=== PATIENT | female | born 1950 | race Caucasian/White ===

== ENCOUNTER 2016-12-30 07:32 | Inpatient (IN) | payer OTHER, MEDICARE ==
[2016-12-30] VITALS (9 sets, daily range): BP systolic 93–137; BP diastolic 44–75
[~2016-12-30] VITALS: Ht 152.4 cm; Wt 88.0 kg
--- NOTE | ~2016-12-30 | HC ---
[facility] [place] [address] CONSULTATION Name: JUSTYN STOUT Room #: 237-P ADM IN M.R.#: [id number] Admission: 12/30/16 Attend Phys: Rashi Jensen MD Discharge: Date of : 48 Report #: [id number] THIS REPORT FOR: //name// CC: Desiree Jensen DATE OF SERVICE: 12/30/2016 CHIEF COMPLAINT: I have been asked to evaluate this 66-year-old lady who presented to the emergency department with chief complaint of abdominal pain. HISTORY OF PRESENT ILLNESS: The patient begin with onset of abdominal pain on Wednesday afternoon. It was in her lower abdomen that has been progressive over the last 2-3 days. She sought attention in the emergency department, had examination. CT scan demonstrates free air, possibly early developing abscess of the distal small bowel or the colon in the lower abdomen. She has had a previous colonoscopy, but does not recall when. She had a lab band placed a number of years ago, approximately 8-9 and she had an 80-pound weight loss. She has noticed no recent change in her gastrointestinal function prior to Wednesday. PAST MEDICAL HISTORY: Medical illnesses: Hypertension, greater than 10 years; arthritis and obesity. PAST SURGICAL HISTORY: Surgical illnesses: Lab band placement approximately 8 years ago and previous hysterectomy. MEDICATIONS: Noted in the record. ALLERGIES: AMOXICILLIN. 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 Denies cigarette smoking or alcohol ingestion. REVIEW OF SYSTEMS: A 10-point review of systems essentially noncontributory, except for recent change in gastrointestinal function. PHYSICAL EXAMINATION: GENERAL: Well-developed, well-nourished, overweight lady. VITAL SIGNS: Within normal limits. Afebrile. HEENT: Pupils equal, round and react to light. Extraocular movements within normal limits. NECK: Supple. No adenopathy. LUNGS: Clear at the bases bilaterally. CARDIOVASCULAR: Regular rate and rhythm. ABDOMEN: Obese. Lap band port in the left upper quadrant, left to midline. Lower midline scar, tenderness with guarding and rebound in the lower abdomen. [facility] [address] [place] [address] CONSULTATION Name: JUSTYN STOUT Room #: 237-P ADM IN M.R.#: [id number] Admission: 12/30/16 Attend Phys: Rashi Jensen MD Discharge: Date of : 48 Report #: [id number] RECTAL EXAMINATION: Not performed. NEUROLOGIC: The patient is alert and oriented times 3, with bilateral motor symmetry. DIAGNOSTIC IMPRESSION: Perforated viscus. The patient has an acute abdomen. PLAN: IV antibiotics, exploratory laparotomy. The patient will need possible small-bowel resection or a colon resection for the perforation with a colostomy if this involves the sigmoid colon. The procedure, benefits and risks have been discussed with the patient. She is in agreement to proceed. <ELECTRONICALLY SIGNED> By: Johnson Hightower MD, FACS 12/30/16 1519 1108 1130 Johnson Hightower MD, FACS /nt
--- NOTE | ~2016-12-30 | HC ---
[facility] [place] [address] CONSULTATION Name: JUSTYN STOUT Room #: 237-P ADM IN M.R.#: [id number] Admission: 12/30/16 Attend Phys: Rashi Jensen MD Discharge: Date of : 48 Report #: [id number] THIS REPORT FOR: //name// CC: Desiree Jensen REASON FOR CONSULTATION: I was asked to evaluate concerning perforated sigmoid diverticular disease with peritonitis. HISTORY OF PRESENT ILLNESS: The patient was a 66-year-old, presented to the emergency room with generalized weakness, fatigue. Onset occurred approximately 5 days prior to her presentation. She did report a mildly productive cough. Decreased appetite was associated with this. She did have some abdominal pain and CT scan of the abdomen showed evidence of pneumoperitoneum consistent with bowel perforation. She was taken to the operating room where she is found to have sigmoid diverticulitis with perforation. She had a sigmoid resection with a colostomy and a partial . The patient is now in the Intensive Care Unit, hemodynamically stable. She is now off the ventilator. She has an NG tube in place and does respond. Right IJ catheter in place, she has indwelling Arthur catheter with reasonable urine output. ALLERGIES: None known. MEDICATIONS: As noted on her MAR, which were reviewed. PAST MEDICAL HISTORY: Hyperlipidemia, hypothyroidism, diabetes, arthritis, hypertension, cholecystectomy, right shoulder repair, right leg fracture repair. SOCIAL HISTORY: Nonsmoker, no significant alcohol intake. PHYSICAL EXAMINATION: VITAL SIGNS: The patient is afebrile, hemodynamically stable. Blood pressure 110/69, heart rate 93. GENERAL: Right IJ catheter Unremarkable. CHEST: Clear. HEART: Regular. ABDOMEN: Diffusely tender. She had a Prevena on her incision. FRED drainage with serous output. Her colostomy was unremarkable. EXTREMITIES: Unremarkable. LABORATORY STUDIES: Sodium 131, potassium 4.5, bicarbonate 22, creatinine 1.9. I do not have a baseline creatinine on her. Liver function test normal, calcium 10.4. Liver function test normal. Lactate 1.7. Hemoglobin 12.5, white count 21.4, platelet count 334,000, 4% bands. Urinalysis, many WBCs, many bacteria. Cultures of blood, urine and peritoneal fluid are pending. CT scan of the abdomen and pelvis noted sigmoid colon thickening and changes of diverticulitis. Large amount of scattered pneumatosis along the perihepatic region, 4.6 x 4.5 [place] [address] CONSULTATION Name: JUSTYN STOUT Room #: 237-P ADM IN [facility].#: [id number] Admission: 12/30/16 Attend Phys: Rashi Jensen MD Discharge: Date of : 48 Report #: [id number] fluid collection with an air fluid level, indeterminate. There were several other small fluid collections present as well. IMPRESSION: A 66-year-old with perforated sigmoid following diverticulitis. Associated peritonitis. She is now stable post-laparotomy and sigmoid resection. Recommend continuing broad antibiotic coverage and await cultures. I suspect the urinary tract infection is related as well. <ELECTRONICALLY SIGNED> By: Leon Ho MD 12/31/16 0920 1751 0901 Leon Ho MD /nt
--- NOTE | ~2016-12-30 | EKG ---
[address] [address] ELECTROCARDIOGRAM REPORT Name: ARGELIAJUSTYN Room #: 406-P ADM IN M.R.#: [id number] Admission: 12/30/16 Attend Phys: Rashi Jensen MD Discharge: Date of : 48 Report #: [id number] THIS REPORT FOR: //name// [facility] Test Date: 2016-12-30 Test Time: 11:03:03 Pat Name: JUSTYN STOUT Department: Room: 406 Gender: F Med Spa Manager: Loraine CISNEROS : 1950 Requested By: Johnson Hightower Order Number: [id number] MD: Josh Yousif Measurements Intervals [place] Rate: 90 P: 35 [place]: 142 QRS: 6 QRSD: 91 T: 107 QT: 335 QTc: 410 Interpretive Statements Sinus rhythm Nonspecific T abnormalities, lateral leads No previous ECG available for comparison Electronically Signed On 01-01-2017 13:16:25 CDT by Josh Yousif [email or web address] <ELECTRONICALLY SIGNED> By: Josh Yousif MD 01/01/17 1316 1103 02 Josh Yousif MD /HAO
--- NOTE | ~2016-12-30 | O ---
[facility] [place] [address] OPERATIVE REPORT Name: JUSTYN STOUT Room #: 406-P [facility] IN M.R.#: [id number] Admission: 12/30/16 Attend Phys: Rashi Jensen MD Discharge: Date of : 48 Report #: [id number] THIS REPORT FOR: //name// CC: Desiree Jensen DATE OF SERVICE: 12/30/2016 PREOPERATIVE DIAGNOSIS: Diverticulitis with perforation and abscess formation in the pelvis. POSTOPERATIVE DIAGNOSIS: Diverticulitis with perforation and abscess formation in the pelvis. OPERATIVE PROCEDURE: Exploratory laparotomy, partial omentectomy, sigmoid colectomy (Kristopher's procedure), placement of Prevena negative wound pressure device. SURGEON: Johnson Hightower MD. UPHOLSTERER APPRENTICE: Master Mcknight MD. INDICATIONS: A 66-year-old lady who has presented to Emergency Room with free air by CT scanning with an abscess of 3 cm diameter in the rectosigmoid region, which is impossible to reach by Interventional Radiology for drainage procedure. The patient had significant leukocytosis and tenderness with rebound and guarding to exam. OPERATIVE PROCEDURE: The patient had thorough discussion of procedure, benefits and risks. She gave informed consent to proceed. She was given preoperative IV antibiotics. She was brought to the operating room suite and had satisfactory induction of general endotracheal anesthesia. The patient's entire abdomen was prepped and draped in usual sterile manner with DuraPrep solution. A Arthur catheter was inserted. The patient had been advised of the possibility of need for ostomy prior to operation. After draping was completed, an appropriate timeout was then performed. Midline incision was performed. A large inflammatory mass and abscess were encountered in the pelvis. The blunt dissection of small bowel away from the medial wall of the abscess was encountered. A yellow creamy purulent foul smelling abscess contents were obtained. These contents were aspirated and cultures were obtained for aerobes, anaerobes. The bowel distal to the perforation of the colon was identified. The mesocolon was transected and a hole was made. The contour stapling device was utilized to transect the bowel at the rectosigmoid junction. The white line of Toldt was utilized and freed up the sigmoid colon. Proximal resection margin was chosen and the TRACE stapling device was utilized to transect the colon at the proximal resection margin. The LigaSure was then utilized to transect the [address] [address] OPERATIVE REPORT Name: JUSTYN STOUT Lexis Room #: 406-P [facility] IN .R.#: [id number] Admission: 12/30/16 Attend Phys: Rashi Jensen MD Discharge: Date of : 48 Report #: [id number] mesocolon. Care was taken to evaluate and find the left ureter. After the entire sigmoid mesocolon was transected, the specimen was marked for proximal resection and distal resection with sutures. All was submitted for histologic evaluation. Part of the omentum, which had been adherent to the abscess cavity was also transected utilizing a LigaSure device. Approximately half of the omentum was transected and sent for histologic evaluation, which was a partial omentectomy. Two 19-Omani drains were placed in the pelvis and brought out to the lateral abdominal wall and sutured in place with 2-0 nylon. The distal resection margin of the residual rectal stump was then marked with 2-0 Prolene sutures medially and laterally. Copious irrigation with approximately 6 liters of saline was performed. Evacuation of all irrigating contents was accomplished. The peritoneal irrigation was free of murky consistency at the completion of the irrigation. A 3 finger opening through the anterior abdominal wall was then performed utilizing the electrocautery. The sigmoid colon was easily brought through the ostomy site. A 2-0 PDS was utilized at 12 and 6 position to approximate the serosal surface to the anterior fascia. The midline fascia was approximated with running #1 looped 0 PDS, 1 suture was run from the inferior aspect and 1 suture was run from the superior aspect, each were tied individually in the mid portion of the wound. The tails were tied together. After skin margins were stapled, the ostomy was matured utilizing 4-0 Vicryl with full thickness mucosal to dermal sutures at the 12, 3, 6, 9 positions. Interrupted sutures were also placed between the previously mentioned sutures for completion at the maturation of the ostomy. Fingertip introduction through the ostomy demonstrated an open ostomy through the fascial level. The mucosa was pink, somewhat hyperemic with venous congestion, but clearly nonischemic. The Prevena device was also placed at the completion of the skin stapling and maturation of the ostomy and a colostomy device was also placed. Sponge and needle counts were correct. The patient tolerated the procedure well and she returned directly to the Intensive Care Unit extubated in satisfactory and stable condition. <ELECTRONICALLY SIGNED> By: Johnson Hightower MD, FACS 01/07/17 1018 1800 1834 Johnson Hightower MD, FACS /nt
--- NOTE | ~2016-12-30 | HC ---
[facility] [place] [address] CONSULTATION Name: JUSTYN STOUT Room #: 406-P ADM IN M.R.#: [id number] Admission: 12/30/16 Attend Phys: Rashi Jensen MD Discharge: Date of : 48 Report #: [id number] THIS REPORT FOR: //name// CC: Desiree Jensen DATE OF SERVICE: 12/30/2016 REASON FOR CONSULTATION: ICU management. IMPRESSION: 1. Postop expiratory laparotomy, partial omentectomy, sigmoid colectomy. 2. Possible urinary tract infection. 3. Leukocytosis. 4. Acute renal failure. 5. Hypothyroidism. 6. Dehydration, acute kidney injury. 7. Hypercalcemia. 8. Protein calorie malnutrition. 9. Atelectasis. 10. Renal mass. PLAN: 1. Antibiotics per ID. 2. We will monitor fluids. 3. Aerosol treatment as needed. 4. DVT and ulcer prophylaxis. We will follow closely with you. Pain control. HISTORY OF PRESENT ILLNESS: A 66-year-old female who came in through the ER with weakness, fatigue, cough, nasal congestion, fatigue with abdominal pain, now seen in ICU. PAST MEDICAL HISTORY: HOME MEDICATIONS: Included Micardis, levothyroxine, glucosamine, Biotin, , Flonase, Optivar. ALLERGIES: No known. FAMILY HISTORY: Noncontributory. SOCIAL HISTORY: Negative tobacco, negative ETOH. PAST SURGICAL HISTORY: Include cholecystectomy, right shoulder repair, right leg surgery, ovarian cysts. [facility] [address] [place] [address] CONSULTATION Name: JUSTYN STOUT Room #: 406-P [facility] IN M.R.#: [id number] Admission: 12/30/16 Attend Phys: Rashi Jensen MD Discharge: Date of : 48 Report #: [id number] REVIEW OF SYSTEMS: The patient is postop. Denied shortness of breath or chest pain, positive abdominal pain. No edema. No fever, chills. Did have decreased appetite. Positive history of diabetes. PHYSICAL EXAMINATION: VITAL SIGNS: Temperature 97.6, pulse 86, BP 112/59. EYES: Negative icterus. NECK: Trachea midline. LUNGS: Clear anteriorly. HEART: Regular. ABDOMEN: Quiet. EXTREMITIES: Showed no clubbing, cyanosis or edema. She relates she is not thinking straight yet. LABORATORY DATA: Chest x-ray showed right IJ catheter, NG tube in place, atelectasis. Cultures pending. INR 1.1. Lactate was 1.7. CT abdomen and pelvis had shown moderate pneumoperitoneum, 2 moderate sized fluid collections within the mild mesentery surrounded by small bowel. Right renal 1.8 cm lesion, small ill-defined density within the uterus. <ELECTRONICALLY SIGNED> By: Toña Hunter MD 01/01/17 1841 1818 1110 Toña Hunter MD /nt
--- NOTE | ~2016-12-30 | S ---
[facility] [place] [address] SURGICAL PATH RPT PROCEDURE Name: NITZA PABON Room #: 406-P ADM IN M.R.#: [id number] Admission: 12/30/16 Date of : 48 Discharge: Report #: [id number] Path Case #: [id number] PATHOLOGY REPORT COLLECTION DATE: 12/30/2016 RECEIVED DATE: 12/31/2016 SUBMITTING PHYS: Dr. Johnson Hightower OTHER PHYS: Dr. Desiree Mcknight SPECIMEN(S) RECEIVED: A.Partial omentectomy B.Sigmoid colon * * * * * * * * * * * * FINAL DIAGNOSIS: A. "Partial omentectomy", partial omentectomy: - Omentum (21.2 cm) with acute and chronic inflammation, necrosis, fat necrosis and mesothelial hyperplasia. B. "Sigmoid colon", resection: - Diverticulitis with acute and chronic inflammation, necrosis, granulation tissue, acute serositis and dense serosal fibrous adhesions; surgical margins without significant inflammation. - Lymph nodes with hyperplasia (4 nodes). (CLW:kimmie; d/t: 01/01/2017) PATHOLOGIST: Yoli Tang M.D. REPORT ELECTRONICALLY SIGNED BY: Yoli Tang M.D. DATE/TIME: 01/01/2017 23:07 * * * * * * * * * * * * GROSS PATHOLOGY: A. The specimen is received in formalin, labeled "Nitza Pabon and partial omentectomy." Received is a 21.2 x 14.5 x 2.2 cm blood-tinged, yellow-iverson, and lobulated adipose tissue consistent with omentum. The specimen is serially sectioned to reveal a homogenous, yellow-iverson, lobulated, and gross unremarkable cut surface. [employer] Manager sections are submitted in cassette A1. B. The specimen is received in formalin, labeled "Nitza Pabon and sigmoid colon, suture enriquez proximal end." Received is a curved segment of colon, oriented with a suture placed at the proximal end. The specimen measures 21.5 cm in length and 3.7 cm in length. There is up to 5.3 cm in length of attached pericolic fat. The specimen displays 2 stapled margins. The serosa is dull, pink-iverson, and displays multiple adhesions and overlying exudate. A [address] [address] SURGICAL PATH RPT PROCEDURE Name: NITZA PABON Y Room #: 406-P [facility] IN ..#: [id number] Admission: 12/30/16 Date of : 48 Discharge: Report #: [id number] Path Case #: [id number] perforation is not grossly identified. The specimen is opened along the anti-mesenteric line to reveal multiple intact and fecal filled diverticula, ranging from 0.2-2.2 cm in greatest dimension. The remaining mucosa is red-pink and displays the usual architectural folds. The wall is thickened and measures up to 0.6 cm. Dissection of the pericolic fat reveals few possible lymph nodes ranging from 0.2-0.3 cm in greatest dimension. Also received is a 12.3 x 9.3 x 2.2 cm aggregate of blood-tinged, yellow-iverson, and lobulated adipose soft tissue, some with overlying white-iverson exudate. The specimen is serially sectioned to reveal a yellow, lobulated, and grossly unremarkable cut surface. [employer] Manager sections are submitted as follows: A1 proximal margin, en face A2 distal margin, en face A3 diverticula A4 several intact and possible lymph nodes A5 sections from aggregate of adipose soft tissue (TTL; 12/31/2016) CLINICAL HISTORY: Pre-op diagnosis: Bowel perforation Post-op diagnoses: Diverticulitis with perforation and abscess INITIAL CPT CODE(S): A; 60944 B; 06647 Professional services performed by [employer] at [facility] [address] [place] [address] Technical services performed by [employer] at [address] [place] [address], [address], [place] [address]. [employer] [address] [place] [address] PHONE: [phone] DIRECTOR: Dain Thompson M.D. * * * END OF REPORT * * *
[~2016-12-30 07:32] MED LIST: AMOX TR-K CLV1 EAC4 PO; BIOTIN1 MG PO; CO Q-10200 MG PO; DOXYCYCLINE 10100 M1 PO; FLONASE 0.05%50 MCG NASAL; LEVOTHYROXIN0.137 M1 PO; MICARDIS 80 MG80 MG PO; MULTI VITAMIN1 EACH PO; NAPROSYN500 MG PO; OPTIVAR6 ML OPHTHALMIC; OSTEO BI-FLEX1 EAC1 PO
[2016-12-30 08:20] LABS: HEMATOCRIT 36.9 % (37.0-47.0); HEMOGLOBIN 12.5 gm/dL (12.0-15.0); MCH 31.3 pg (26.0-34.0); MCHC 33.8 g/dL (28.0-37.0); MCV 92.6 fL (80.0-100.0); PLATELET COUNT 334 thou/uL (150-400); RBC 3.98 mil/uL (4.20-5.00); RDW 13.6 % (10.5-14.5); WBC 21.4 thou/uL (4.0-11.0)
[2016-12-30 08:22] LABS: MANUAL DIFF YES
[2016-12-30 08:45] LABS: CALCIUM 10.4 mg/dL (8.5-10.1); CREATININE 1.9 mg/dL (0.6-1.3); POTASSIUM 4.5 mmol/L (3.5-5.1)
[2016-12-30 08:58] LABS: URINE BLOOD TRACE (Negative); URINE COLOR YELLOW; URINE GLUCOSE-RANDOM* NEGATIVE (Negative); URINE KETONES TRACE (Negative); URINE NITRITE NEGATIVE (Negative); URINE PROTEIN (DIPSTICK) 1+ (Negative); URINE SPECIFIC GRAVITY 1.025 (1.003-1.035)
[2016-12-30 09:05] LABS: ICTOTEST (BILI CONFIRMATORY) Negative (Negative); URINE BILIRUBIN NEGATIVE (Negative)
[2016-12-30 09:10] LABS: ALBUMIN 2.9 g/dL (3.4-5.0); DIRECT BILIRUBIN 0.3 mg/dL (<0.1-0.3); TOTAL BILIRUBIN 0.9 mg/dL (<0.1-1.0); TOTAL PROTEIN 7.8 g/dL (6.4-8.2)
[2016-12-30 09:14] LABS: ABSOLUTE NEUTROPHILS 20.5 thou/uL (1.4-8.2); ANISOCYTOSIS 1+; TOTAL CELL COUNT 100
[2016-12-30 09:28] LABS: AMORPHOUS URATES Moderate /LPF (None Seen); BACTERIA >30 Many /HPF (None Seen); CASTS None Seen /LPF (None Seen); SQUAMOUS >10 Many /LPF (0-3); URINE RBC 3-10 Few /HPF (0-2); URINE WBC >25 Many /HPF (0-5)
[2016-12-30 11:28] LABS: APTT 36.9 Seconds (24.5-32.8); INR 1.1; PROTIME 11.4 Seconds (9.3-11.4)
[2016-12-30 20:30] LABS: ABG SAMPLE TYPE ARTERIAL; BE(vivo) -10.9 mmol/L (-2 to +3); HCO3 15.2 mmol/L (22.0-26.0); LACTATE 0.65 mmol/L (0.5-2.0); O2(CT) 15.2 mL/dL (15.0-23.0); O2Hb 91.9 % (92.0-98.0); PO2 72.9 mmHg (80.0-100.0); sO2 92.6 % (92.0-98.0); tCO2 16.3 mmol/L (24.0-30.0)
[2016-12-30 20:31] LABS: STICK SITE R.BRACHIAL; pH 7.257 (7.360-7.450)
[2016-12-30 21:28] LABS: HEMATOCRIT 31.7 % (37.0-47.0); HEMOGLOBIN 10.8 gm/dL (12.0-15.0); MCH 31.4 pg (26.0-34.0); MCV 92.5 fL (80.0-100.0); PLATELET COUNT 268 thou/uL (150-400); RBC 3.42 mil/uL (4.20-5.00); RDW 13.4 % (10.5-14.5); WBC 15.3 thou/uL (4.0-11.0)
[2016-12-30 21:30] LABS: MANUAL DIFF YES
[2016-12-30 21:42] LABS: ALBUMIN 2.2 g/dL (3.4-5.0); CREATININE 1.2 mg/dL (0.6-1.3); POTASSIUM 4.6 mmol/L (3.5-5.1); TOTAL BILIRUBIN 1.3 mg/dL (<0.1-1.0); TOTAL PROTEIN 5.8 g/dL (6.4-8.2)
[2016-12-30 21:44] LABS: CALCIUM 7.9 mg/dL (8.5-10.1)
[2016-12-30 21:54] LABS: ABSOLUTE NEUTROPHILS 14.7 thou/uL (1.4-8.2); ANISOCYTOSIS 1+; TOTAL CELL COUNT 100
[2016-12-31] VITALS (16 sets, daily range): BP systolic 110–136; BP diastolic 54–76
[2016-12-31 05:03] LABS: HEMATOCRIT 30.6 % (37.0-47.0); HEMOGLOBIN 10.3 gm/dL (12.0-15.0); MCH 31.4 pg (26.0-34.0); MCHC 33.7 g/dL (28.0-37.0); MCV 93.3 fL (80.0-100.0); RBC 3.28 mil/uL (4.20-5.00); RDW 13.9 % (10.5-14.5); WBC 13.5 thou/uL (4.0-11.0)
[2016-12-31 05:18] LABS: ALBUMIN 2.1 g/dL (3.4-5.0); CALCIUM 8.2 mg/dL (8.5-10.1); CREATININE 1.1 mg/dL (0.6-1.3); MAGNESIUM 1.9 mg/dL (1.8-2.4); POTASSIUM 4.4 mmol/L (3.5-5.1); TOTAL BILIRUBIN 0.7 mg/dL (<0.1-1.0)
[2017-01-01 00:59] VITALS: BP 140/77
[2017-01-01 04:45] LABS: HEMATOCRIT 28.3 % (37.0-47.0); HEMOGLOBIN 9.5 gm/dL (12.0-15.0); MCH 31.3 pg (26.0-34.0); MCHC 33.6 g/dL (28.0-37.0); MCV 93.1 fL (80.0-100.0); PLATELET COUNT 289 thou/uL (150-400); RBC 3.04 mil/uL (4.20-5.00); WBC 11.2 thou/uL (4.0-11.0)
[2017-01-01 04:53] LABS: MANUAL DIFF YES
[2017-01-01 05:29] LABS: CALCIUM 8.7 mg/dL (8.5-10.1); CREATININE 0.7 mg/dL (0.6-1.3); POTASSIUM 3.9 mmol/L (3.5-5.1); TOTAL BILIRUBIN 0.4 mg/dL (<0.1-1.0); TOTAL PROTEIN 5.7 g/dL (6.4-8.2)
[2017-01-01 06:25] VITALS: BP 135/74
[2017-01-01 07:26] LABS: ABSOLUTE NEUTROPHILS 9.6 thou/uL (1.4-8.2); TOTAL CELL COUNT 100
[2017-01-01 07:27] LABS: PLATELET ESTIMATE NORMAL
[2017-01-01 08:00] VITALS: BP 141/76
[2017-01-01 16:00] VITALS: BP 147/79
[2017-01-01 21:50] VITALS: BP 149/69
[2017-01-02 04:46] VITALS: BP 144/68
[2017-01-02 05:29] LABS: HEMATOCRIT 28.5 % (37.0-47.0); HEMOGLOBIN 9.6 gm/dL (12.0-15.0); MCH 31.1 pg (26.0-34.0); MCHC 33.8 g/dL (28.0-37.0); PLATELET COUNT 286 thou/uL (150-400); RDW 13.8 % (10.5-14.5)
[2017-01-02 05:32] LABS: MANUAL DIFF YES
[2017-01-02 05:53] LABS: CALCIUM 8.5 mg/dL (8.5-10.1); CREATININE 0.7 mg/dL (0.6-1.3); POTASSIUM 3.6 mmol/L (3.5-5.1)
[2017-01-02 07:11] LABS: ABSOLUTE NEUTROPHILS 8.3 thou/uL (1.4-8.2); TOTAL CELL COUNT 100
[2017-01-02 07:35] VITALS: BP 154/80
[2017-01-02 19:24] VITALS: BP 143/78
[2017-01-03 03:30] VITALS: BP 159/90
[2017-01-03 06:57] LABS: HEMATOCRIT 34.2 % (37.0-47.0); HEMOGLOBIN 11.4 gm/dL (12.0-15.0); MCH 30.5 pg (26.0-34.0); MCHC 33.2 g/dL (28.0-37.0); MCV 91.8 fL (80.0-100.0); RBC 3.73 mil/uL (4.20-5.00); RDW 13.9 % (10.5-14.5); WBC 14.1 thou/uL (4.0-11.0)
[2017-01-03 07:11] LABS: CALCIUM 8.7 mg/dL (8.5-10.1); CREATININE 0.7 mg/dL (0.6-1.3)
[2017-01-03 07:25] VITALS: BP 159/96
[2017-01-03 12:27] VITALS: BP 166/88
[2017-01-03 13:21] LABS: URINE BLOOD TRACE (Negative); URINE COLOR YELLOW; URINE GLUCOSE-RANDOM* NEGATIVE (Negative); URINE KETONES 3+ (Negative); URINE LEUKOCYTES-REFLEX NEGATIVE (Negative); URINE PROTEIN (DIPSTICK) 1+ (Negative); URINE SPECIFIC GRAVITY >= 1.030 (1.003-1.035); URINE UROBILINOGEN 0.2 E.U./dl (0.2-1.0)
[2017-01-03 13:31] LABS: URINE BILIRUBIN NEGATIVE (Negative)
[2017-01-03 13:33] LABS: CASTS None Seen /LPF (None Seen); CRYSTALS None Seen /LPF (None Seen); SQUAMOUS 0-3 Few /LPF (0-3); URINE RBC 0-2 Rare /HPF (0-2); URINE WBC-REFLEX 0-5 Rare /HPF (0-5)
[2017-01-03 16:12] VITALS: BP 148/77
[2017-01-03 20:00] VITALS: BP 151/72
[2017-01-04 04:00] VITALS: BP 129/68
[2017-01-04 06:00] LABS: HEMATOCRIT 29.1 % (37.0-47.0); HEMOGLOBIN 9.9 gm/dL (12.0-15.0); MCH 31.4 pg (26.0-34.0); MCHC 34.1 g/dL (28.0-37.0); MCV 92.3 fL (80.0-100.0); RBC 3.15 mil/uL (4.20-5.00); RDW 13.7 % (10.5-14.5); WBC 13.2 thou/uL (4.0-11.0)
[2017-01-04 06:11] LABS: ALBUMIN 1.7 g/dL (3.4-5.0); CALCIUM 8.3 mg/dL (8.5-10.1); CREATININE 0.7 mg/dL (0.6-1.3); TOTAL BILIRUBIN 0.3 mg/dL (<0.1-1.0); TOTAL PROTEIN 5.1 g/dL (6.4-8.2)
[2017-01-04 07:56] VITALS: BP 158/110
[2017-01-04 08:30] VITALS: BP 132/68
[2017-01-04 12:58] VITALS: BP 124/84
[2017-01-04 14:22] LABS: CALCIUM 8.3 mg/dL (8.5-10.1); CREATININE 0.6 mg/dL (0.6-1.0); MAGNESIUM 1.5 mg/dL (1.8-2.4); POTASSIUM 3.1 mmol/L (3.5-5.1)
[2017-01-04 16:00] VITALS: BP 127/62
[2017-01-04 19:22] LABS: MAGNESIUM 1.8 mg/dL (1.8-2.4); POTASSIUM 3.5 mmol/L (3.5-5.1)
[2017-01-04 19:38] VITALS: BP 146/73
[2017-01-04 23:45] LABS: MAGNESIUM 2.3 mg/dL (1.8-2.4); POTASSIUM 3.6 mmol/L (3.5-5.1)
[2017-01-05 03:52] VITALS: BP 141/73
[2017-01-05 04:09] LABS: MCH 31.2 pg (26.0-34.0); MCHC 34.4 g/dL (28.0-37.0); MCV 90.7 fL (80.0-100.0); PLATELET COUNT 309 thou/uL (150-400); RBC 3.19 mil/uL (4.20-5.00); RDW 13.3 % (10.5-14.5); WBC 11.4 thou/uL (4.0-11.0)
[2017-01-05 04:10] LABS: MANUAL DIFF YES
[2017-01-05 04:24] LABS: CALCIUM 8.1 mg/dL (8.5-10.1); CREATININE 0.6 mg/dL (0.6-1.0); POTASSIUM 3.6 mmol/L (3.5-5.1)
[2017-01-05 05:03] LABS: METAMYELOCYTES 1 %; MYELOCYTES 2 %; TOTAL CELL COUNT 100
[2017-01-05 05:08] LABS: PLATELET ESTIMATE NORMAL
[2017-01-05 12:00] VITALS: BP 129/73
[2017-01-05 19:25] VITALS: BP 103/73
[2017-01-06 03:55] VITALS: BP 106/73
[2017-01-06 07:42] LABS: HEMATOCRIT 28.9 % (37.0-47.0); HEMOGLOBIN 9.6 gm/dL (12.0-15.0); MCH 30.6 pg (26.0-34.0); MCHC 33.4 g/dL (28.0-37.0); MCV 91.6 fL (80.0-100.0); PLATELET COUNT 322 thou/uL (150-400); RBC 3.15 mil/uL (4.20-5.00); RDW 13.7 % (10.5-14.5); WBC 11.2 thou/uL (4.0-11.0)
[2017-01-06 07:45] LABS: MANUAL DIFF YES
[2017-01-06 07:53] LABS: CREATININE 0.6 mg/dL (0.6-1.0); POTASSIUM 3.4 mmol/L (3.5-5.1)
[2017-01-06 08:18] LABS: ABSOLUTE NEUTROPHILS 9.9 thou/uL (1.4-8.2); METAMYELOCYTES 4 %; TOTAL CELL COUNT 100
[2017-01-06 08:19] LABS: ANISOCYTOSIS SLIGHT; POLYCHROMASIA OCCASIONAL
[2017-01-06 08:28] VITALS: BP 146/71
[2017-01-06 08:55] LABS: MAGNESIUM 1.8 mg/dL (1.8-2.4); PHOSPHORUS 2.9 mg/dL (2.5-4.9)
[2017-01-06 15:36] VITALS: BP 127/67
[2017-01-06 20:15] VITALS: BP 161/81
[2017-01-07 04:00] VITALS: BP 143/61
[2017-01-07 04:12] LABS: ABSOLUTE NEUTROPHILS 8.6 thou/uL (1.4-8.2); BASOPHILS 0.9 % (0.0-2.0); EOSINOPHILS 1.9 % (0.0-3.0); HEMATOCRIT 28.5 % (37.0-47.0); HEMOGLOBIN 10.3 gm/dL (12.0-15.0); LYMPHOCYTES 10.8 % (24.0-44.0); MCHC 36.3 g/dL (28.0-37.0); MONOCYTES 4.5 % (1.0-8.0); PLATELET COUNT 328 thou/uL (150-400); POLYS 81.9 % (36.0-66.0); RBC 3.14 mil/uL (4.20-5.00); RDW 13.3 % (10.5-14.5); WBC 10.5 thou/uL (4.0-11.0)
[2017-01-07 04:13] LABS: MANUAL DIFF NO
[2017-01-07 04:21] LABS: CALCIUM 8.4 mg/dL (8.5-10.1); CREATININE 0.7 mg/dL (0.6-1.0); POTASSIUM 3.4 mmol/L (3.5-5.1)
[2017-01-07 08:49] VITALS: BP 138/66
[2017-01-07 12:34] LABS: MAGNESIUM 1.9 mg/dL (1.8-2.4); PHOSPHORUS 3.2 mg/dL (2.5-4.9)
[2017-01-07 16:00] VITALS: BP 141/82
[2017-01-07 20:09] VITALS: BP 146/80
[2017-01-08 04:00] VITALS: BP 131/74
[2017-01-08 06:21] LABS: HEMATOCRIT 27.9 % (37.0-47.0); HEMOGLOBIN 9.7 gm/dL (12.0-15.0); MCH 31.6 pg (26.0-34.0); MCHC 34.8 g/dL (28.0-37.0); MCV 90.8 fL (80.0-100.0); RBC 3.07 mil/uL (4.20-5.00); RDW 13.6 % (10.5-14.5); WBC 10.8 thou/uL (4.0-11.0)
[2017-01-08 06:35] LABS: CALCIUM 8.4 mg/dL (8.5-10.1); CREATININE 0.7 mg/dL (0.6-1.0); POTASSIUM 3.8 mmol/L (3.5-5.1)
[2017-01-08 08:43] VITALS: BP 134/81
[2017-01-08 08:46] LABS: MAGNESIUM 1.9 mg/dL (1.8-2.4); PHOSPHORUS 3.8 mg/dL (2.5-4.9)
[2017-01-08 15:41] VITALS: BP 149/79
[2017-01-08 19:50] VITALS: BP 150/78
[2017-01-08 21:00] VITALS: BP 141/72
[2017-01-09 05:48] VITALS: BP 135/76
[2017-01-09 06:37] LABS: BASOPHILS 0.6 % (0.0-2.0); EOSINOPHILS 1.6 % (0.0-3.0); HEMOGLOBIN 9.4 gm/dL (12.0-15.0); LYMPHOCYTES 10.9 % (24.0-44.0); MCH 30.9 pg (26.0-34.0); MCHC 33.7 g/dL (28.0-37.0); MCV 91.6 fL (80.0-100.0); MONOCYTES 5.3 % (1.0-8.0); PLATELET COUNT 366 thou/uL (150-400); POLYS 81.6 % (36.0-66.0); RBC 3.05 mil/uL (4.20-5.00); RDW 13.7 % (10.5-14.5)
[2017-01-09 06:47] LABS: MANUAL DIFF NO
[2017-01-09 06:53] LABS: CALCIUM 8.7 mg/dL (8.5-10.1); CREATININE 0.7 mg/dL (0.6-1.0); MAGNESIUM 1.9 mg/dL (1.8-2.4); PHOSPHORUS 3.8 mg/dL (2.5-4.9); POTASSIUM 3.8 mmol/L (3.5-5.1)
[2017-01-09 08:45] VITALS: BP 135/73
[2017-01-09 16:45] VITALS: BP 133/73
[2017-01-09 20:00] VITALS: BP 135/63
[2017-01-10 04:00] VITALS: BP 117/59
[2017-01-10 06:19] LABS: CALCIUM 9.1 mg/dL (8.5-10.1); CREATININE 0.7 mg/dL (0.6-1.0); MAGNESIUM 2.1 mg/dL (1.8-2.4); PHOSPHORUS 4.1 mg/dL (2.5-4.9); POTASSIUM 4.2 mmol/L (3.5-5.1)
[2017-01-10 07:30] VITALS: BP 122/65
[2017-01-10 19:39] VITALS: BP 147/88
[2017-01-11 03:11] VITALS: BP 114/60
[2017-01-11 07:43] VITALS: BP 110/61
[2017-01-11 07:54] LABS: ABSOLUTE NEUTROPHILS 6.9 thou/uL (1.4-8.2); BASOPHILS 0.8 % (0.0-2.0); EOSINOPHILS 1.9 % (0.0-3.0); HEMATOCRIT 27.5 % (37.0-47.0); HEMOGLOBIN 9.4 gm/dL (12.0-15.0); LYMPHOCYTES 17.7 % (24.0-44.0); MCH 31.6 pg (26.0-34.0); MCHC 34.2 g/dL (28.0-37.0); MCV 92.4 fL (80.0-100.0); MONOCYTES 7.2 % (1.0-8.0); POLYS 72.4 % (36.0-66.0); RBC 2.98 mil/uL (4.20-5.00); RDW 13.7 % (10.5-14.5); WBC 9.6 thou/uL (4.0-11.0)
[2017-01-11 08:02] LABS: MANUAL DIFF NO
[2017-01-11 08:05] LABS: PLATELET COUNT 447 thou/uL (150-400)
[2017-01-11 08:13] LABS: CALCIUM 8.7 mg/dL (8.5-10.1); CREATININE 0.7 mg/dL (0.6-1.0); POTASSIUM 3.8 mmol/L (3.5-5.1)
[2017-01-11 15:51] VITALS: BP 119/60
[2017-01-11 20:00] VITALS: BP 115/59
[2017-01-12 04:00] VITALS: BP 99/54
[2017-01-12 08:21] VITALS: BP 102/64
[2017-01-12 12:33] VITALS: BP 102/64
[2017-01-12 13:03] VITALS: BP 102/64
[2017-01-12 13:51] VITALS: BP 102/64
[2017-01-12] MEDS ORDERED: CIPRO500 MG PO (15:23)
[2017-01-12] MEDS ORDERED: FLAGYL500 MG PO (15:23)
[2017-01-12 17:02] VITALS: BP 102/64
== END 2017-01-12 18:31 | disposition home health service (06) | DRG 853 ==
LOC: ER 07:32 → ICU 09:41 → 4N 09:41 → EROBS 09:41 → ICU 10:26 → 4N 12-31 15:07 → 5S 01-09 18:10
PROVIDERS: Emergency Medicine; Family Medicine; Hospitalist; Internal Medicine; Internal Medicine Endocrinology, Diabetes & Metabolism; Internal Medicine Pulmonary Disease; Surgery
PROC: 0DBT0ZZ (ICD-10-PCS; principal; 2016-12-30)
PROC: 0DBN0ZZ Excision of Sigmoid Colon, Open Approach (ICD-10-PCS; principal; 2016-12-30)
PROC: 02H633Z Insertion of Infusion Device into Right Atrium, Percutaneous Approach (ICD-10-PCS; 2016-12-30)
PROC: 3E0336Z Introduction of Nutritional Substance into Peripheral Vein, Percutaneous Approach (ICD-10-PCS; 2017-01-07)
DX: A41.9 Sepsis, unspecified organism (principal); J96.00 Acute respiratory failure, unspecified whether with hypoxia or hypercapnia; K57.20 Diverticulitis of large intestine with perforation and abscess without bleeding; N39.0 Urinary tract infection, site not specified; N17.9 Acute kidney failure, unspecified; E44.0 Moderate protein-calorie malnutrition; J98.11 Atelectasis; K56.60 Unspecified intestinal obstruction; E78.00 Pure hypercholesterolemia, unspecified; E03.9 Hypothyroidism, unspecified; M19.90 Unspecified osteoarthritis, unspecified site; E66.9 Obesity, unspecified; E78.5 Hyperlipidemia, unspecified; E11.9 Type 2 diabetes mellitus without complications; E83.52 Hypercalcemia; B96.20 Unspecified Escherichia coli [E. coli] as the cause of diseases classified elsewhere; Z68.37 Body mass index [BMI] 37.0-37.9, adult; Z90.710 Acquired absence of both cervix and uterus; Z88.0 Allergy status to penicillin; Z88.1 Allergy status to other antibiotic agents; Z90.49 Acquired absence of other specified parts of digestive tract
CPT/HCPCS: 10078; 10785; 10790; 50010; 50093; 50101; 50331; 50386; 50455; 50953; 51412; 51708; 51712; 56524; 56525; 56527; 56530; 57092; 62110; 62900; 65002; 65045; 70005

== ENCOUNTER → 2017-04-14 | Outpatient (CLI) | payer OTHER, MEDICARE ==
[~2017-04-14] VITALS: Ht 152.4 cm; Wt 78.5 kg
[~2017-04-14] MED LIST changes: +CALCIUM 500 +1 EAC5 PO; +CIPRO500 MG PO; +COMPOUND DRUG; +FLAGYL500 MG PO; +HORMONE TOP; +LEVOTHYROXIN0.088 MG PO; +PHENTERMINE H37.5 M1 PO; +PROBIOTIC1 EAC1 PO; +STOOL SOFTENER100 MG PO; +VITAMIN D-32000 UNIT PO
--- NOTE | ~2017-04-14 | EKG ---
[address] [address] ELECTROCARDIOGRAM REPORT Name: JUSTYN STOUT [id number] Admission: 04/14/17 Attend Phys: Nick Rosario Discharge: Date of : 48 Report #: [id number] THIS REPORT FOR: //name// [facility] Test Date: 2017-04-14 Test Time: 08:22:18 Pat Name: JUSTYN STOUT Department: Room: Gender: F Hydrochloric Acid Operator: CHARAN : 1950 Requested By: Nick Esteves Order Number: [id number] MD: Nader Jean Baptiste Measurements Intervals [place] Rate: 67 P: 47 [place]: 134 QRS: 20 QRSD: 82 T: 66 QT: 376 QTc: 397 Interpretive Statements Sinus rhythm Probable anteroseptal infarct, old Compared to ECG 12/30/2016 11:03:03 Myocardial infarct finding now present T-wave abnormality no longer present Electronically Signed On 04-14-2017 8:26:55 CDT by Nader Jean Baptiste [email or web address] <ELECTRONICALLY SIGNED> By: Nader Jean Baptiste MD, [facility] 04/14/17 0826 1 1 Nader Jean Baptiste MD, [facility] /EPI
== END ==
LOC: GI 08:00
DX: Z12.11 Encounter for screening for malignant neoplasm of colon (principal); I10 Essential (primary) hypertension; E03.9 Hypothyroidism, unspecified; M19.90 Unspecified osteoarthritis, unspecified site; Z90.49 Acquired absence of other specified parts of digestive tract; Z98.890 Other specified postprocedural states
CPT/HCPCS: 62110; 62900

== ENCOUNTER → 2017-05-14 | Outpatient (CLI) | payer OTHER, MEDICARE | LOC: CV 09:25 | DX: R94.31 Abnormal electrocardiogram [ECG] [EKG] (principal) ==

== ENCOUNTER 2017-07-08 05:24 | Inpatient (IN) | payer OTHER, MEDICARE ==
[~2017-07-08] VITALS: Ht 152.4 cm; Wt 84.4 kg
[2017-07-08] VITALS (7 sets, daily range): BP systolic 107–154; BP diastolic 54–70
--- NOTE | ~2017-07-08 | S ---
[facility] [place] [address] SURGICAL PATH RPT PROCEDURE Name: NITZA PABON Room #: 402-P [facility] IN M.R.#: [id number] Admission: 07/08/17 Date of : 48 Discharge: 07/12/17 Report #: [id number] Path Case #: [id number] PATHOLOGY REPORT COLLECTION DATE: 07/08/2017 RECEIVED DATE: 07/08/2017 SUBMITTING PHYS: Dr. Master Mcknight OTHER PHYS: Dr. Johnson Guzman SPECIMEN(S) RECEIVED: A.Segment of mid jejunum * * * * * * * * * * * * FINAL DIAGNOSIS: Small bowel, segment of mid jejunum, resection: - Markedly congested small bowel with surface mucosa showing reactive changes, history of hernia. - Margins of resection viable and unremarkable. - Negative for dysplasia or malignancy. (IUV:mml; 07/12/2017) PATHOLOGIST: Cherri Brewster M.D. REPORT ELECTRONICALLY SIGNED BY: Cherri Brewster M.D. DATE/TIME: 07/12/2017 16:08 * * * * * * * * * * * * GROSS PATHOLOGY: The specimen is received in formalin labeled "Nitza Pabon, segment of mid jejunum". Received is an unoriented segment of small bowel measuring 28.6 cm in length by 2.2 cm in diameter. Both margins are stapled closed. The serosal surface is pink-iverson to pink-watts in appearance with a large amount of overlying adhesions. The attached mesenteric fat measures up to 5.1 cm in thickness. The specimen is opened along the antimesenteric line to reveal light iverson mucosa with normal architectural folds. No distinct nodules or lesions are noted grossly. Sectioning through the attached mesenteric fat reveals no readily identifiable lymph nodes. The specimen is submitted representatively as follows: A1-A2 both margins A3-A4 textiles sales representative cross-sections of mucosa. (CAA; 07/09/2017) CLINICAL HISTORY: Colostomy in place [address] [address] SURGICAL PATH RPT PROCEDURE Name: GENA PABONLoraine Pires Room #: 402-P [facility] IN M.R.#: [id number] Admission: 07/08/17 Date of : 48 Discharge: 07/12/17 Report #: [id number] Path Case #: [id number] INITIAL CPT CODE(S): A; 78016 Professional services performed by [facility] at [address], [place] [address] Technical services performed by [employer] [employer] at [address] [place] [address], [place] [address]. [facility] [address] [place] [address] PHONE: [phone] DIRECTOR: Dain Thompson M.D. * * * END OF REPORT * * *
--- NOTE | ~2017-07-08 | O ---
[facility] [place] [address] OPERATIVE REPORT Name: JUSTYN STOUT Room #: 402-P ADM IN M.R.#: [id number] Admission: 07/08/17 Attend Phys: Master Mcknight MD, F Discharge: Date of : 48 Report #: [id number] THIS REPORT FOR: //name// CC: Nick Mcknight MD DATE OF SERVICE: 07/08/2017 PREOPERATIVE DIAGNOSES: 1. Desire for bowel continuity. 2. Status post Kristopher's procedure for perforated diverticulitis with abscess. 3. Obesity. 4. Hypertension. 5. Non-insulin dependent diabetes mellitus. POSTOPERATIVE DIAGNOSES: 1. Desire for bowel continuity. 2. Status post Kristopher's procedure for perforated diverticulitis with abscess. 3. Extensive intra-abdominal adhesions. 4. Incarcerated incisional ventral hernias x 2. 5. Incarcerated parastomal hernia. 6. Obesity. 7. Hypertension. 8. Non-insulin dependent diabetes mellitus. PROCEDURE: 1. Laparoscopic colostomy reversal. 2. Extensive laparoscopic lysis of adhesions lasting 130 minutes. 3. Segmental small bowel resection. 4. Primary repair of incarcerated incisional ventral hernias x 2. 5. Primary repair of incarcerated parastomal hernia. 6. This is a modifier 22 operation based on the length of time necessary to take down adhesions as well as the patient's body habitus. She stands 5 feet 0 and has a BMI of nearly 37, which made maneuvering within the abdominal cavity quite difficult. She required extreme positioning for visualization. Her adhesions were from small bowel to the anterior abdominal wall, extending into her hernia, which made dissection more difficult. ANESTHESIA: General endotracheal anesthesia and local anesthetic. ESTIMATED BLOOD LOSS: 25 mL. SPECIMEN: Segment of mid jejunum. COMPLICATIONS: None appreciated. [facility] [address] [place] [address] OPERATIVE REPORT Name: JUSTYN STOUT Lexis Room #: 402-P [facility] IN [facility]#: [id number] Admission: 07/08/17 Attend Phys: Master Mcknight MD, F Discharge: Date of : 48 Report #: [id number] INDICATION FOR PROCEDURE: This is a 66-year-old female patient of Dr. Bette Guzman who developed a perforated sigmoid diverticulitis with an abscess. She underwent a Kristopher's procedure on 12/30/2016. Since that time, the patient underwent colonoscopy by Dr. Nick Esteves. The patient does have a strictured stoma and has required finger dilatation daily. Despite this, the patient has difficulty with fecal impactions at her stoma site. She is interested in bowel continuity. She has been cleared from a cardiovascular standpoint. She does have a history of laparoscopic placement of an adjustable gastric band and started out at 238 pounds with a current weight of nearly 190 pounds after dropping down to 160 pounds. Laparoscopic colostomy reversal is indicated. OPERATIVE FINDINGS: Upon entrance into the abdominal cavity, the patient had extensive intraabdominal adhesions involving bowel to the anterior abdominal wall as well as omentum to abdominal wall, interloop adhesions between the bowel, and extensive adhesions involving the small bowel within the pelvis and the rectum. The bowel was tightly adherent to the anterior abdominal wall and extended up into the hernia. There was a compromise of the serosa in taking down the adhesions due to the tight scarring that was present. This ultimately necessitated a segmental resection of the bowel involved (mid jejunum). Incisional ventral hernias involving the mid portion of the right subcostal incision as well as the mid portion of her midline incision near the umbilicus were present. These were incarcerated with bowel and omentum. There was also bowel and omental incarceration into the parastomal hernia. The reduced bowel was viable. After taking down the colostomy, a medium sized 29 mm stapler was chosen for the end-to-end stapled anastomosis. Extensive dissection of the rectum was necessary to straighten the rectum in order to advance the dilators and stapler. After creating the anastomosis, the leak test was negative, whereby the anastomosis was submerged under saline and the colon proximal to the anastomosis was occluded while insufflating air transanally. No air bubbles were seen exiting from the anastomosis. There was no tension on the anastomosis. Decision was made to repair the incisional ventral hernias and perform the bowel resection through that incision. Upon running the bowel, no other serosal injuries were present. At the conclusion of the operation, sponge, needle, and instrument counts were correct. No other significant intraabdominal pathology was identified. DESCRIPTION OF PROCEDURE IN DETAIL: After the risks, benefits, and expectations of the operation were discussed in detail with the patient, informed consent was obtained. The patient was identified in the preoperative holding area. She was given IV antibiotics as documented in the chart in line with SCIP metrics. The patient was then taken to the operating room and she was placed in the supine position. SCDs were placed on the patient's bilateral lower extremities and pneumatic compression was initiated. The patient was then given IV sedation and she was intubated without incident. She was placed in the low lying dorsal [address] [address] OPERATIVE REPORT Name: JUSTYN STOUT Room #: 402-P [facility] IN ..#: [id number] Admission: 07/08/17 Attend Phys: Master Mcknight MD, F Discharge: Date of : 48 Report #: [id number] lithotomy position and Yellofin stirrups. The patient's ostomy was then closed at the skin level with a silk pursestring suture. The patient's abdomen was then prepped and draped in the standard sterile fashion. A time-out was performed to identify the correct patient and procedure. Local anesthetic was infiltrated into the skin and subcutaneous tissue in the left subcostal area where a small skin jesus was made and a Veress needle was placed. Pneumoperitoneum was achieved with insufflation of carbon dioxide to 15 mmHg. A 5 mm Visiport was then placed in the right upper quadrant of the abdomen after local anesthetic was infiltrated into the skin and subcutaneous tissue and an appropriately sized incision was made. After placement of the port, a 30-degree angled laparoscope was inserted. Adhesions were swept down in order to place a port in the left lower quadrant of the abdomen. A 5-mm port was placed after local anesthetic was infiltrated and an appropriately sized incision was made. Using this port, more adhesions were taken down working toward the upper midline. Ultimately, a vertical midline incision was used to place a 5 mm port through a hernia defect that had been incarcerated with omentum and small bowel. This was the hernia that was associated with the right subcostal incision. Adhesions were more fully taken down with appropriate traction and with sharp dissection. I judiciously used the ultrasonic dissector to avoid thermal transfer. Several serosal defects were present on the small bowel that was tightly adherent to the anterior abdominal wall and located within the incarcerated incisional ventral hernia with thick, tight scar tissue. After taking down all these adhesions, the content within the parastomal hernia was dissected free as well using blunt dissection and a judicious use of the ultrasonic dissector. A colostomy was then taken down with an elliptoid incision externally. The abdominal cavity was desufflated. A sharp #10 blade scalpel was used to make the incision transversely. The tissue was then divided with electrocautery and the hernia sac was entered. The stoma was circumferentially freed. The outer pursestring device was then placed on the colon and the excess colon excised. Allis clamps were then triangulated on the open end of the colon and the pursestring suture was tagged. The colon was dilated sequentially. The 29 mm stapler was chosen. The 29-mm anvil was then placed within the colon and the pursestring suture was tied. The colon was then placed within the abdominal cavity. The prior stoma site was clipped closed with penetrating towel clips. The abdominal cavity was then reinsufflated. The anvil appeared to reach the pelvis without difficulty. An extensive dissection of the rectum was undertaken next. The rectum was accordioned within the pelvis and this required extensive lysis to straighten the rectum. Intermittently, a dilator was attempted to be passed from below until the rectum could be straightened enough to allow for this. The marking sutures on the colon were identified. The 29 mm stapler was then advanced transanally up to an area just distal to the rectal stump staple line. The spike was advanced through the anterior portion of the colon and the spike and anvil were connected, then tightened and fired. The stapler was loosened and [facility] [address] [place] [address] OPERATIVE REPORT Name: JUSTYN STOUT Room #: 402-P ADM IN [place]#: [id number] Admission: 07/08/17 Attend Phys: Master Mcknight MD, F Discharge: Date of : 48 Report #: [id number] carefully removed. The anastomosis was submerged under normal saline. The colon was occluded proximal to the anastomosis, and using the rigid proctoscope, air was insufflated into the rectal vault to test the anastomosis. No air bubbles escaped from the anastomosis. The fluid was then suctioned. Decision was made to open the patient's fascia between the 2 hernia defects. Through this incision, the bowel would be more closely inspected and could be resected if necessary. A sharp #10 blade scalpel was used to make a vertical upper midline incision approximately 2-1/2 to 3 inches in length. Electrocautery was used to dissect through the subcutaneous tissue down to the fascia and hernia sac of both the upper and lower hernia defect. The abdominal cavity was entered. The small bowel was then run in its entirety from the ligament of Treitz to the ileocecal valve. The area of mid jejunum that was most involved with tight adhesions to the anterior abdominal wall was closely inspected. Several serosal defects were present and decision was made to resect the segment of bowel. Mesenteric windows were made proximally and distally. A blue load TRACE stapler was then used to staple and divide each section of the bowel. The mesentery was divided with the Ethicon X1 energy device with good hemostasis. The segment of bowel was sent for specimen. A stapled [id number]-ab-[id number] functional end-to-end anastomosis was then created next. The antimesenteric corners of the bowel were approximated with a 3-0 PDS suture. The corners of the staple line were then excised and each limb of the 75 mm blue load staplers were passed into each limb of the bowel. The stapler was then connected and fired after ensuring antimesenteric firing. Stapler was removed. The common enterotomy was then clamped with Allis clamps. A 60 mm TX blue load stapler was used to staple off the common enterotomy. The excess tissue was excised and the stapler was removed. An anti-tension 3-0 PDS suture was placed at the crotch of the anastomosis. A running 3-0 PDS suture was then used to close the mesenteric defect. Interrupted 3-0 PDS Lembert sutures were used to imbricate the common enterotomy staple line. The anastomosis was palpably patent. The fascia was then closed with a running looped #1 PDS suture to incorporate both hernia defects. The towel clips were removed and the parastomal hernia was repaired in layers with a running 0 PDS suture. Prior to tying the suture, the abdominal cavity was reinsufflated and there was no incorporation of the bowel with either closure. The wounds were then irrigated and all ports were removed. [place] were used for skin closure. The patient tolerated the procedure well. She was awakened, extubated, and taken to recovery room in stable condition with no apparent intraoperative complications. <ELECTRONICALLY SIGNED> By: Master Mcknight MD, FACS 07/09/17 0740 [id number] 1610 Master Mcknight MD, FACS /nt
[~2017-07-08 05:24] MED LIST changes: +HORMONE COMPOUND TOP; -LEVOTHYROXIN0.088 MG PO; +SYNTHROID88 MCG PO; +THYROID COMPOUND PO
[2017-07-09 00:36] VITALS: BP 131/69
[2017-07-09 03:56] LABS: HEMOGLOBIN 12.1 gm/dL (12.0-15.0); MCH 31.5 pg (26.0-34.0); MCHC 33.7 g/dL (28.0-37.0); MCV 93.4 fL (80.0-100.0); PLATELET COUNT 256 thou/uL (150-400); RBC 3.85 mil/uL (4.20-5.00); RDW 13.7 % (10.5-14.5); WBC 12.1 thou/uL (4.0-11.0)
[2017-07-09 03:57] LABS: MANUAL DIFF YES
[2017-07-09 04:05] LABS: CALCIUM 8.8 mg/dL (8.5-10.1); CREATININE 1.2 mg/dL (0.6-1.0); POTASSIUM 4.4 mmol/L (3.5-5.1)
[2017-07-09 04:26] LABS: ABSOLUTE NEUTROPHILS 10.5 thou/uL (1.4-8.2); TOTAL CELL COUNT 100
[2017-07-09 04:29] LABS: PLATELET ESTIMATE NORMAL
[2017-07-09 04:30] VITALS: BP 117/52
[2017-07-09 07:33] VITALS: BP 112/56
[2017-07-09 15:51] VITALS: BP 111/53
[2017-07-09 19:00] VITALS: BP 109/51
[2017-07-10 04:50] LABS: HEMOGLOBIN 10.8 gm/dL (12.0-15.0); MCH 31.8 pg (26.0-34.0); MCHC 33.6 g/dL (28.0-37.0); MCV 94.5 fL (80.0-100.0); PLATELET COUNT 208 thou/uL (150-400); RBC 3.38 mil/uL (4.20-5.00); RDW 14.3 % (10.5-14.5); WBC 10.9 thou/uL (4.0-11.0)
[2017-07-10 04:52] LABS: MANUAL DIFF YES
[2017-07-10 04:59] LABS: CALCIUM 8.5 mg/dL (8.5-10.1); CREATININE 1.3 mg/dL (0.6-1.0); MAGNESIUM 1.6 mg/dL (1.8-2.4); POTASSIUM 3.7 mmol/L (3.5-5.1)
[2017-07-10 05:08] LABS: GLYCOHEMOGLOBIN (HGB A1C) 5.9 % (4.8-5.6)
[2017-07-10 05:14] VITALS: BP 91/36
[2017-07-10 06:10] VITALS: BP 112/58
[2017-07-10 07:57] VITALS: BP 110/56
[2017-07-10 08:33] LABS: ABSOLUTE NEUTROPHILS 9.6 thou/uL (1.4-8.2); TOTAL CELL COUNT 100
[2017-07-10 16:27] VITALS: BP 126/65
[2017-07-10 19:45] VITALS: BP 117/62
[2017-07-11 03:39] LABS: ABSOLUTE NEUTROPHILS 6.2 thou/uL (1.4-8.2); BASOPHILS 0.3 % (0.0-2.0); EOSINOPHILS 1.9 % (0.0-3.0); HEMATOCRIT 28.9 % (37.0-47.0); HEMOGLOBIN 9.8 gm/dL (12.0-15.0); LYMPHOCYTES 11.2 % (24.0-44.0); MCHC 33.8 g/dL (28.0-37.0); MCV 94.6 fL (80.0-100.0); MONOCYTES 6.3 % (1.0-8.0); PLATELET COUNT 201 thou/uL (150-400); POLYS 80.3 % (36.0-66.0); RBC 3.06 mil/uL (4.20-5.00); RDW 14.1 % (10.5-14.5); WBC 7.7 thou/uL (4.0-11.0)
[2017-07-11 03:40] VITALS: BP 126/60
[2017-07-11 03:41] LABS: MANUAL DIFF NO
[2017-07-11 03:49] LABS: CALCIUM 8.4 mg/dL (8.5-10.1); MAGNESIUM 2.2 mg/dL (1.8-2.4); POTASSIUM 3.6 mmol/L (3.5-5.1)
[2017-07-11 08:00] VITALS: BP 115/60
[2017-07-11 16:16] VITALS: BP 131/65
[2017-07-11 20:58] VITALS: BP 119/49
[2017-07-12 04:07] VITALS: BP 115/56
[2017-07-12 08:47] VITALS: BP 115/51
[2017-07-12] MEDS ORDERED: HYDROCODON-ACE1 EAC7 PO (10:01)
[2017-07-12 13:52] VITALS: BP 115/51
== END 2017-07-12 14:45 | disposition home or self-care (01) | DRG 330 ==
LOC: 4N 05:24 → TBA 05:24 → PRE 05:59 → 4N 15:07 → ENTRNSPT 07-12 14:55
PROVIDERS: Internal Medicine; Surgery
PROC: 0WQF4ZZ Repair Abdominal Wall, Percutaneous Endoscopic Approach (ICD-10-PCS; principal; 2017-07-08)
PROC: 0DB84ZZ Excision of Small Intestine, Percutaneous Endoscopic Approach (ICD-10-PCS; principal; 2017-07-08)
PROC: 0DN84ZZ Release Small Intestine, Percutaneous Endoscopic Approach (ICD-10-PCS; principal; 2017-07-08)
DX: Z43.3 Encounter for attention to colostomy (principal); K43.0 Incisional hernia with obstruction, without gangrene; K43.3 Parastomal hernia with obstruction, without gangrene; L25.9 Unspecified contact dermatitis, unspecified cause; E83.42 Hypomagnesemia; M19.90 Unspecified osteoarthritis, unspecified site; E03.9 Hypothyroidism, unspecified; E78.5 Hyperlipidemia, unspecified; I10 Essential (primary) hypertension; E11.9 Type 2 diabetes mellitus without complications; K66.0 Peritoneal adhesions (postprocedural) (postinfection); E66.9 Obesity, unspecified; Z68.36 Body mass index [BMI] 36.0-36.9, adult; Z88.1 Allergy status to other antibiotic agents; Z91.040 Latex allergy status; Z90.49 Acquired absence of other specified parts of digestive tract; Z82.49 Family history of ischemic heart disease and other diseases of the circulatory system; N28.9 Disorder of kidney and ureter, unspecified
CPT/HCPCS: 10790; 50010; 50093; 50101; 50249; 50386; 50455; 50555; 50558; 50962; 51398; 51412; 51435; 51489; 51708; 51712; 52265; 53307; 53310; 54022; 54118; 56462; 56524; 56525; 56526; 56527; 56530; 56753; 57092; 62110; 62900; 70005

== ENCOUNTER → 2019-07-03 | Outpatient (CLI) | payer OTHER, MEDICARE ==
[~2019-07-03] MED LIST changes: +HYDROCODON-ACE1 EAC7 PO; +IBUPROFEN 600600 M1 PO; +TRAMADOL 50 MG50 MG PO
== END ==
LOC: RAD 14:10
DX: R05 Cough (principal); M47.814 Spondylosis without myelopathy or radiculopathy, thoracic region

== ENCOUNTER → 2021-07-17 | Outpatient (CLI) | payer OTHER, MEDICARE | LOC: SJCVC 12:59 | PROVIDERS: ATTEND Internal Medicine Cardiovascular Disease | DX: R94.31 Abnormal electrocardiogram [ECG] [EKG] (principal); R07.9 Chest pain, unspecified; I10 Essential (primary) hypertension; E78.00 Pure hypercholesterolemia, unspecified; R60.9 Edema, unspecified; I25.10 Atherosclerotic heart disease of native coronary artery without angina pectoris; F41.9 Anxiety disorder, unspecified; E11.9 Type 2 diabetes mellitus without complications; Z88.0 Allergy status to penicillin; Z88.1 Allergy status to other antibiotic agents; Z79.899 Other long term (current) drug therapy; Z82.49 Family history of ischemic heart disease and other diseases of the circulatory system ==

== ENCOUNTER → 2021-08-21 | Outpatient (CLI) | payer OTHER, MEDICARE | LOC: SJCVCIMAG 11:13 | PROVIDERS: ATTEND Internal Medicine Cardiovascular Disease | DX: I73.9 Peripheral vascular disease, unspecified (principal); R20.0 Anesthesia of skin; E11.9 Type 2 diabetes mellitus without complications; E03.9 Hypothyroidism, unspecified; I10 Essential (primary) hypertension; E78.5 Hyperlipidemia, unspecified; K57.90 Diverticulosis of intestine, part unspecified, without perforation or abscess without bleeding; F41.9 Anxiety disorder, unspecified; R06.02 Shortness of breath; M79.604 Pain in right leg; M79.605 Pain in left leg; Z79.899 Other long term (current) drug therapy ==

== ENCOUNTER → 2021-09-15 | Outpatient (CLI) | payer OTHER, MEDICARE | LOC: SJCVCIMAG 08:45 | PROVIDERS: ATTEND Internal Medicine Cardiovascular Disease | DX: R94.31 Abnormal electrocardiogram [ECG] [EKG] (principal); I11.0 Hypertensive heart disease with heart failure; E11.9 Type 2 diabetes mellitus without complications; I50.32 Chronic diastolic (congestive) heart failure; R07.9 Chest pain, unspecified; E78.00 Pure hypercholesterolemia, unspecified; Z88.1 Allergy status to other antibiotic agents; Z88.0 Allergy status to penicillin; Z79.899 Other long term (current) drug therapy; Z82.49 Family history of ischemic heart disease and other diseases of the circulatory system ==

== ENCOUNTER → 2021-11-07 | Outpatient (CLI) | payer OTHER, MEDICARE ==
[~2021-11-07] VITALS: Ht 152.4 cm; Wt 83.9 kg
[~2021-11-07] MED LIST changes: +ACETYL L-CARNI1 EACH PO; +COQ-10100 MG PO; +JANUVIA50 MG PO; +LEVO-T100 MCG PO; +MAG-OXIDE400 MG PO; +MICARDIS 20MG T20 M1 PO; +OMEPRAZOLE40 MG PO; +SERTRALINE HCL25 M1 PO; +STOOL SOFTENER250 MG PO; +THERA TABLET400 MCG PO; +VITAMIN D325 MC3 PO
--- NOTE | ~2021-11-07 | P ---
[facility] [address] PROCEDURE REPORT Name: JUSTYN STOUT Room #: REG Jessica Cornejo#: [id number] Admission: 11/07/21 Attend Phys: Nick Rosario Discharge: Date of : 48 Report #: [id number] THIS REPORT FOR: cc: Bette Guzman MD, Nora P. MD McElhinney, Christian C. MD ~ cc: Bette Guzman MD DATE OF SERVICE: 11/07/2021 PROCEDURE PERFORMED: Upper endoscopy with biopsies and esophageal dilation. HISTORY OF PRESENT ILLNESS: The patient is a 71-year-old female who was seen in the office by myself on 09/11/2021 with complaints of gastroesophageal reflux disease, dysphagia and pain, primarily chest pain as well as midepigastric abdominal pain as well as early satiety. She had a Lap-Band placed many years ago. Her weight has been stable. She has never had a previous upper endoscopy. She does take Prilosec on a daily basis, which in general controls her heartburn symptoms. Plan is for upper endoscopy for further evaluation. DESCRIPTION OF PROCEDURE: The risks and benefits of the procedure were explained to the patient, those risks including but not limited to bleeding, perforation and the risk of sedation. She understood these risks and gave informed consent. Sedation was given using propofol per Anesthesia. Next, using a standard Olympus upper endoscope, the scope was placed in the patient's mouth and advanced under direct vision through the esophagus, stomach and into the second portion of the duodenum. The larynx was normal in appearance. The upper and midesophagus was somewhat tortuous, but otherwise normal. In the distal esophagus, a possible short segment of Savage's was noted. Biopsies were obtained. No evidence of esophagitis. No stricture was noted. Upon entering the stomach, approximately a third to a half of the stomach was noted to have food residual in the proximal part. It was obvious the Lap-Band located in the upper to mid-stomach was causing a partial type of obstruction. Again, food was noted proximal to this area. I was able to find the opening and able to advance the scope through this area, which was somewhat tight. When I advanced the scope into the mid to distal stomach, the mucosa was normal. There was no food noted in the distal stomach below the Lap-Band. The pylorus was normal and patent. The duodenal bulb, first and second portion were all normal. The scope was then brought back up into the patient's gastric antrum and a Savary guidewire was inserted through the scope, leaving the guidewire in place as the scope was then withdrawn. Next, a Savary dilation using 48-[place] Islander was performed of the esophagus and stomach without difficulty. The wire and dilator removed. The scope was reintroduced into the patient's stomach. There was no evidence of mucosal tear after dilation. The scope was then withdrawn and the procedure terminated. The patient tolerated the procedure well. [address] [address] PROCEDURE REPORT Name: ARGELIAJUSTYN Room #: PIPER Cornejo#: [id number] Admission: 11/07/21 Attend Phys: Nick Rosario Discharge: Date of : 48 Report #: [id number] IMPRESSION: 1. Lap-Band noted in the midportion of the stomach causing a partial obstruction with food residual noted above the Lap-Band in the proximal stomach. The area is somewhat tight. I was able to dilate this today and advance the scope through this area. Difficult to tell if the Lap-Band has migrated distally or if the proximal stomach is now within a hiatal hernia. 2. 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 RECOMMENDATIONS: 1. Await biopsy results. 2. Continue PPI therapy. 3. Observe the patient post-dilation. I suspect she will need a surgical removal of Lap-Band, as this is the likely source of her symptoms. A dilation was performed today and we will see if this is helpful. We will also proceed with an upper GI for further evaluation. Thank you for allowing me to participate in her care. By: [id number] Nick Esteves MD /amy
--- NOTE | 2021-11-11 15:07 | PATH ---
[facility] [address] [place] [address] PATHOLOGY RPT PROCEDURE Name: NITZA PABON Lexis Room #: REG RENETTA Richards.#: [id number] Admission: 11/07/21 Date of : 48 Discharge: Report #: [id number] Path Case #: [id number] [facility] Accession Number: [id number] . 01 Material submitted: . 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 Modifiers: distal . 01 Clinical history: . DYSPHAGIA, ABDOMINAL PAIN EGD . 02 Diagnosis: Distal esophagus: - Esophageal squamous and gastric cardia mucosa with reactive epithelial changes, chronic inflammation, and focal intestinal metaplasia (Cole's esophagus). - Negative for dysplasia and malignancy. (MLK/db; 11/10/2021) LBQ 11/11/2021 1404 Local . 02 Electronically signed: . Emelia Castle MD, Pathologist NPI- [id number] . 01 Gross description: . The specimen is received in formalin, labeled "Nitza Pabon, distal esophagus rule out Cole's". Received are 3 segments of pale iverson tissue ranging in size from 0.2 cm to 0.3 cm in maximum dimensions. The specimen is submitted entirely in cassette A1.([facility]; 11[place]07/2021[place] 11/07/2021 1646 Local . 02 Pathologist provided ICD-10: K20.90 . 02 CPT . 120378 Specimen Comment: A courtesy copy of this report has been sent to [phone] Specimen Comment: [phone] Specimen Comment: Report sent to / DR SCHROEDER Performed at: 01 [facility] [address] [place] [address] [id number] MD Mark Hayward MD Phone: [phone] Performed at: [address] [id number] [place] [address] PATHOLOGY RPT PROCEDURE Name: NITZA PABON Y Room #: REG RENETTA Cornejo#: [id number] Admission: 11/07/21 Date of : 48 Discharge: Report #: [id number] Path Case #: [id number] MD Dain Thompson MD Phone: [phone]
== END | disposition home or self-care (01) ==
LOC: GI 07:08
PROVIDERS: ATTEND Specialist
DX: K21.9 Gastro-esophageal reflux disease without esophagitis (principal); R13.19 Other dysphagia; I10 Essential (primary) hypertension; E03.9 Hypothyroidism, unspecified; E11.9 Type 2 diabetes mellitus without complications; F32.9 Major depressive disorder, single episode, unspecified; E78.5 Hyperlipidemia, unspecified; Z79.899 Other long term (current) drug therapy; Z98.890 Other specified postprocedural states; Z98.84 Bariatric surgery status; Z20.822 Contact with and (suspected) exposure to COVID-19; Z98.41 Cataract extraction status, right eye; Z98.42 Cataract extraction status, left eye; Z87.19 Personal history of other diseases of the digestive system; Z91.040 Latex allergy status
CPT/HCPCS: 62110; 62900